=== PATIENT | male | born 1990 | race African-American/Black ===

== ENCOUNTER 2019-11-17 17:02 | Emergency (ER) | payer SELFPAY ==
[2019-11-17] MEDS ORDERED: NA CHLORIDE 0.9% 2,000 ML ONE (17:35)
[2019-11-17 17:58] LABS: Absolute Lymphocytes (CBC) 1.7 K/uL (0.7-4.9); Basophils % 0.6 % (0-1.3); Lymphocytes % 32.8 % (15.3-44.8); RBC Red Blood Cell Count 4.17 M/uL (4.33-5.43)
[2019-11-17 18:20] LABS: BUN Blood Urea Nitrogen 15 mg/dL (7-18); Bicarbonate 26 mmol/L (21-32); Creatine Phosphokinase 82 U/L (39-308); Glucose Level 86 mg/dL (74-106); Magnesium 2.1 mg/dL (1.8-2.4); Potassium 3.6 mmol/L (3.5-5.1); Sodium Level 144 mmol/L (136-145); Troponin (Emerg Dept Use Only) < 0.02 ng/mL (0.0-0.045)
--- NOTE | 2019-11-17 19:15 | ER ---
Nurse's Notes [facility] Name: Gianni Jean Age: 29 yrs Sex: Male : 1990 Arrival Date: 11/17/2019 Time: 17:12 Bed 19 Private MD: Diagnosis: Heat exhaustion, unspecified Presentation: 11/16 17:12 Chief complaint: EMS states: pt was found wandering around at [facility] [place], pt was confused em A\T\O x 2, denies ETOH/drug use, pt states he walked from [place] and does not know how he got to [place], 20 G RAC, given 300 mL NS. Coronavirus screen: Client denies travel out of the [place] in the last 14 days. Ebola Screen: Patient negative for fever greater than or equal to 101.5 degrees Fahrenheit, and additional compatible Ebola Virus Disease symptoms Patient denies exposure to infectious person. Patient denies travel to an Ebola-affected area in the 21 days before illness onset. No symptoms or risks identified at this time. Initial Sepsis Screen: Does the patient meet any 2 criteria? No. Patient's initial sepsis screen is negative. Does the patient have a suspected source of infection? No. Patient's initial sepsis screen is negative. Risk Assessment: Do you want to hurt yourself or someone else? Patient reports no desire to harm self or others. Onset of symptoms was November 17, 2019. 17:12 Method Of Arrival: EMS: [facility] em 17:12 Acuity: LUCIANO 3 em Historical: - Allergies: 17:17 No Known Allergies; em - PMHx: 17:17 None; em - PSHx: 17:17 None; em - Immunization history:: Adult Immunizations unknown. - Social history:: Smoking status: Patient reports the use of cigarette tobacco products, smokes one-half pack cigarettes per day. Screenin:12 Abuse screen: Denies threats or abuse. Nutritional screening: No deficits noted. em Tuberculosis screening: No symptoms or risk factors identified. Fall Risk None identified. Assessment: 17:12 General: Appears in no apparent distress. comfortable, Behavior is calm, cooperative, em appropriate for age, Denies fever. Pain: Denies pain. Neuro: Level of Consciousness is awake, lethargic, Oriented to person, place, time, situation, Appropriate for age. Cardiovascular: Capillary refill < 3 seconds Patient's skin is warm and dry. Respiratory: Airway is patent Respiratory effort is even, unlabored, Respiratory pattern is regular, symmetrical. Derm: Skin is intact, is healthy with good turgor, Skin is pink, warm \T\ dry. Musculoskeletal: Capillary refill < 3 seconds, Range of motion: intact in all extremities. 18:28 Reassessment: Patient appears in no apparent distress at this time. Patient and/or em family updated on plan of care and expected duration. Pain level reassessed. Patient is alert, oriented x 3, equal unlabored respirations, skin warm/dry/pink. 20:04 Reassessment: Patient is alert, oriented x 3, equal unlabored respirations, skin lp1 warm/dry/pink. Neuro: Gait is steady. Vital Signs: 17:12 BP 94 / 56; Pulse 52; Resp 18; Temp 98.4(O); Pulse Ox 99% on R/A; Pain 0/10; em 18:26 BP 91 / 59; Pulse 70; Resp 18; Pulse Ox 97% on R/A; em 19:30 BP 106 / 81; Pulse 62; Resp 16; Pulse Ox 96% on R/A; lp1 ED Course: 17:12 Patient arrived in ED. em 17:12 Patient has correct armband on for positive identification. Bed in low position. Call em light in reach. Adult w/ patient. mailroom assistant on. Pulse ox on. NIBP on. 17:12 Maintain EMS IV. Dressing intact. Good blood return noted. Site clean \T\ dry. Gauge \T\ em site: 20 RAC. 17:15 River Jackson MD is Attending Physician. kdr 17:16 Triage completed. em 17:17 Stanley Mann, EMMA is Primary Nurse. em 17:17 Arm band placed on. em 19:18 UDS Sent. ds4 20:03 No provider procedures requiring assistance completed. IV discontinued, bleeding lp1 controlled, Patient pulled out own IV. Administered Medications: 17:40 Drug: NS 0.9% 1000 ml Route: IV; Rate: 1 bolus; Site: right antecubital; em 17:40 Drug: NS 0.9% 1000 ml Route: IV; Rate: 1 bolus; Site: right antecubital; em Outcome: 19:15 Discharge ordered by . kdr 20:03 Discharged to home ambulatory. lp1 20:03 Condition: good 20:03 Discharge instructions given to patient, Instructed on discharge instructions, follow up and referral plans. Demonstrated understanding of instructions, follow-up care. 20:05 Patient left the ED. lp1 Signatures: River Jackson MD MD kdr Stanley Mann, RN RN Kassidy Holly RN RN lp1 Jaxson Del Rio ds4
--- NOTE | 2019-11-17 19:16 | EDPHYS ---
Physician Documentation [facility] Name: Gianni Jean Age: 29 yrs Sex: Male : 1990 Arrival Date: 11/17/2019 Time: 17:12 Bed 19 Private MD: ED Physician River Jackson HPI: 11/17 15:21 This 29 yrs old Black Male presents to ER via EMS with complaints of Heat Exposure. kdr 15:21 The patient was found wandering around a local store parking lot and was confused. He kdr is very somnolent on arrival and is slow to respond to questions. He denies head injury or drug use.. Onset: The symptoms/episode began/occurred just prior to arrival, today. Severity of symptoms: At their worst the symptoms were moderate in the emergency department the symptoms are unchanged. It is unknown whether or not the patient has had similar symptoms in the past. It is unknown whether or not the patient has recently seen a physician. Historical: - Allergies: 11/16 17:17 No Known Allergies; em - PMHx: 17:17 None; em - PSHx: 17:17 None; em - Immunization history:: Adult Immunizations unknown. - Social history:: Smoking status: Patient reports the use of cigarette tobacco products, smokes one-half pack cigarettes per day. ROS: 11/17 15:21 Constitutional: Negative for fever, chills, and weight loss, Eyes: Negative for injury, kdr pain, redness, and discharge, Neck: Negative for injury, pain, and swelling, Cardiovascular: Negative for chest pain, palpitations, and edema, Respiratory: Negative for shortness of breath, cough, wheezing, and pleuritic chest pain, Abdomen/GI: Negative for abdominal pain, nausea, vomiting, diarrhea, and constipation, Back: Negative for injury and pain, : Negative for injury, bleeding, discharge, and swelling, MS/Extremity: Negative for injury and deformity, Skin: Negative for injury, rash, and discoloration, Psych: Negative for depression, anxiety, suicide ideation, homicidal ideation, and hallucinations, Allergy/Immunology: Negative for hives, rash, and allergies, Endocrine: Negative for neck swelling, polydipsia, polyuria, polyphagia, and marked weight changes, Hematologic/Lymphatic: Negative for swollen nodes, abnormal bleeding, and unusual bruising. Neuro: Positive for altered mental status, weakness, Negative for gait disturbance, hearing loss, loss of consciousness, seizure activity, speech changes, syncope, near syncope, visual changes. Exam: 11/16 17:38 ECG was reviewed by the Attending Physician. kdr 11/17 15:21 Constitutional: This is a well developed, well nourished patient who is soomnolent but kdr in no acute distress. Head/Face: Normocephalic, atraumatic. Eyes: Pupils equal round and reactive to light, extra-ocular motions intact. Lids and lashes normal. Conjunctiva and sclera are non-icteric and not injected. Cornea within normal limits. Periorbital areas with no swelling, redness, or edema. Neck: Trachea midline, no thyromegaly or masses palpated, and no cervical lymphadenopathy. Supple, full range of motion without nuchal rigidity, or vertebral point tenderness. No Meningismus. Chest/axilla: Normal chest wall appearance and motion. Nontender with no deformity. No lesions are appreciated. Cardiovascular: Regular rate and rhythm with a normal S1 and S2. No gallops, murmurs, or rubs. Normal PMI, no JVD. No pulse deficits. Respiratory: Lungs have equal breath sounds bilaterally, clear to auscultation and percussion. No rales, rhonchi or wheezes noted. No increased work of breathing, no retractions or nasal flaring. Abdomen/GI: Soft, non-tender, with normal bowel sounds. No distension or tympany. No guarding or rebound. No evidence of tenderness throughout. Back: No spinal tenderness. No costovertebral tenderness. Full range of motion. Skin: Warm, dry with normal turgor. Normal color with no rashes, no lesions, and no evidence of cellulitis. MS/ Extremity: Pulses equal, no cyanosis. Neurovascular intact. Full, normal range of motion. Psych: Awake, alert, with orientation to person, place and time. Behavior, mood, and affect are within normal limits. Neuro: Orientation: slow to respond and difficult to question, Mentation: able to follow commands, slow to respond, somnolent. Vital Signs: 11/16 17:12 BP 94 / 56; Pulse 52; Resp 18; Temp 98.4(O); Pulse Ox 99% on R/A; Pain 0/10; em 18:26 BP 91 / 59; Pulse 70; Resp 18; Pulse Ox 97% on R/A; em 19:30 BP 106 / 81; Pulse 62; Resp 16; Pulse Ox 96% on R/A; lp1 MDM: 19:15 Patient medically screened. kdr 11/17 15:21 Data reviewed: vital signs, nurses notes, lab test result(s), radiologic studies. kdr Counseling: I had a detailed discussion with the patient and/or guardian regarding: the historical points, exam findings, and any diagnostic results supporting the discharge/admit diagnosis, lab results, radiology results, the need for outpatient follow up. ED course: The patient Improved and returned to baseline with the interventions given. He was happy with the care provided and plan for discharge and follow-up. 11/16 17:16 Order name: Basic Metabolic Panel; Complete Time: 19:12 kdr 11/16 17:16 Order name: CBC with Diff; Complete Time: 19:12 kdr 11/16 17:16 Order name: Magnesium; Complete Time: 19:12 kdr 11/16 17:16 Order name: Troponin (emerg Dept Use Only); Complete Time: 19:12 kdr 11/16 17:17 Order name: CPK; Complete Time: 19:12 kdr 11/16 17:38 Order name: UDS kdr 11/16 17:16 Order name: EKG; Complete Time: 17:17 kdr 11/16 17:16 Order name: IV Saline Lock; Complete Time: 17:19 kdr 11/16 17:38 Order name: ETOH Level; Complete Time: 19:12 kdr 11/16 19:20 Order name: Urine Dipstick--Ancillary (enter results) ds4 11/16 17:16 Order name: O2 Per Protocol; Complete Time: 17:19 kdr 11/16 17:16 Order name: O2 Sat Monitoring; Complete Time: 17:19 kdr EC/19 17:38 Rate is 60 beats/min. Rhythm is regular, Sinus Rhythm with No ectopy. QRS [place] is kdr Normal. PA interval is normal. QRS interval is normal. QT interval is normal. No Q waves. Clinical impression: NSR w/ Non-specific ST/T Changes. Administered Medications: 17:40 Drug: NS 0.9% 1000 ml Route: IV; Rate: 1 bolus; Site: right antecubital; em 17:40 Drug: NS 0.9% 1000 ml Route: IV; Rate: 1 bolus; Site: right antecubital; em Disposition: 11/17/19 19:15 Discharged to Home. Impression: Heat exhaustion, unspecified. - Condition is Stable. - Discharge Instructions: Heat Exhaustion Information. - Medication Reconciliation Form, Thank You Letter form. - Follow up: Private Physician; When: 2 - 3 days; Reason: If symptoms return, Further diagnostic work-up, Recheck today's complaints, Continuance of care, Re-evaluation by your physician. - Problem is new. - Symptoms have improved. Signatures: Dispatcher [employer] EDRiver Lee MD MD kdr Stanley Mann RN RN em Kassidy Bravo RN RN lp1 Corrections: (The following items were deleted from the chart) 20:05 19:15 11/17/2019 19:15 Discharged to Home. Impression: Heat exhaustion, unspecified. lp1 Condition is Stable. Forms are Medication Reconciliation Form, Thank You Letter, Antibiotic Education, Prescription Opioid Use. Follow up: Private Physician; When: 2 - 3 days; Reason: If symptoms return, Further diagnostic work-up, Recheck today's complaints, Continuance of care, Re-evaluation by your physician. Problem is new. Symptoms have improved. kdr
[2019-11-17 19:35] LABS: Barbiturates NEGATIVE (NEGATIVE); Benzodiazepines NEGATIVE (NEGATIVE); Cocaine NEGATIVE (NEGATIVE); METHAMPHETAM NEGATIVE (NEGATIVE); Methadone NEGATIVE (NEGATIVE); Opiates NEGATIVE (NEGATIVE); Phencyclidine NEGATIVE (NEGATIVE); THC Cannibis POSITIVE (NEGATIVE)
[2019-11-17 20:41] LABS: Urine Blood NEGATIVE (NEG); Urine Glucose NEGATIVE (NEG); Urine Protein NEGATIVE (NEG); Urine Specific Gravity >1.030 (1.005-1.030); Urine pH 5.5 (5.0-7.0)
[2019-11-17 20:54] VITALS: TEMP 98.4
[2019-11-17 20:56] VITALS: BP 106/81; O2SAT 96
--- NOTE | 2019-11-18 08:39 | EKG ---
Test Date: 2019-11-17 Test Time: 17:28:23 Supervisor [employer]: PAULINO MEASUREMENT RESULTS: Intervals: Rate: 60 IL: 158 QRSD: 94 QT: 386 QTc: 386 [place]: P: 71 IL: 158 QRS: 88 T: 57 INTERPRETIVE STATEMENTS: Normal sinus rhythm with sinus arrhythmia Nonspecific ST abnormality Abnormal ECG No previous ECG available for comparison Electronically Signed On 11-18-19 08:38:15 CDT by Vlad Gold
== END 2019-11-17 20:05 | disposition home or self-care (01) ==
LOC: ER 17:02
DX: T67.5XXA Heat exhaustion, unspecified, initial encounter (principal); F17.210 Nicotine dependence, cigarettes, uncomplicated
CPT/HCPCS: 36415; 80048; 80307; 80320; 81003; 82550; 83735; 84484; 85025; 93005; 99284; J7030